=== PATIENT | male | born 1980 | race African-American/Black ===

== ENCOUNTER 2022-01-01 10:58 | Outpatient (CLI) | payer BC | END 2022-01-01 10:59 | disposition home or self-care (01) | LOC: BICRAD 10:58 | PROVIDERS: ATTEND Nurse Practitioner Family | DX: M54.41 Lumbago with sciatica, right side (principal); M41.9 Scoliosis, unspecified | CPT/HCPCS: 72100 ==

== ENCOUNTER 2022-02-19 10:21 | Outpatient (CLI) | payer BC | END 2022-02-19 10:22 | disposition home or self-care (01) | LOC: LABBT 10:21 | PROVIDERS: ATTEND Nurse Practitioner Family | DX: Z20.822 Contact with and (suspected) exposure to COVID-19 (principal) | CPT/HCPCS: 87811 ==

== ENCOUNTER 2022-02-23 09:15 | Day surgery (SDC) | payer BC ==
[2022-02-19 12:12] VITALS: BMI 33.9
[2022-02-23] MEDS ORDERED: Midazolam HCl 2 mg/2 ml Vial ONE (12:49)
[2022-02-23] MEDS ORDERED: Ondansetron PF 4 MG/2 ML Vial ONE (13:00)
[2022-02-23] MEDS ORDERED: Dexamethasone 20 MG/5 ML VIAL ONE (13:00)
[2022-02-23] MEDS ORDERED: PROPOFOL 200 MG/20 ML VIAL ONE (13:00)
[2022-02-23] MEDS ORDERED: PHENYLEPHRINE-NS 100 MCG/ML 10 ML SYRINGE ONE (13:00)
[2022-02-23] MEDS ORDERED: Lidocaine 1% PF 5 ML VIAL ONE (13:00)
== END 2022-02-23 15:31 | disposition home or self-care (01) ==
LOC: SDC/OP 09:15
PROVIDERS: ATTEND Nurse Practitioner Family
DX: M54.50 Low back pain, unspecified (principal); M54.6 Pain in thoracic spine; G89.29 Other chronic pain; R20.0 Anesthesia of skin; R29.898 Other symptoms and signs involving the musculoskeletal system; R29.2 Abnormal reflex; G95.19 Other vascular myelopathies; Z20.822 Contact with and (suspected) exposure to COVID-19
CPT/HCPCS: 72146; 72148; J1100; J2250; J2405; J2704